=== PATIENT | male | born 1960 | race Caucasian/White ===

== ENCOUNTER → 2018-06-06 | Outpatient (CLI) | payer OTHER ==
[~2018-06-06] MED LIST: ACYC200C PO; DOCU-109 PO; HYDR-2761 PO; HYDR-2765 PO; LISI-130 PO; LORA10TA3 PO; METH-38 PO
--- NOTE | 2018-06-06 16:12 | EKG ---
[facility] [address] [place] [address] Test Date: 2018-06-06 Test Time: 16:08:59 Pat Name: JAMI DENSON Department: Room: Gender: M Reed Fixer: AT : 1960 Requested By: ADRIANA ALLAN Order Number: [id number] Reading MD: Pieter Cornejo MD Measurements Intervals [place] Rate: 92 P: 24 SC: 152 QRS: 9 QRSD: 94 T: 31 QT: 328 QTc: 410 Interpretive Statements SINUS RHYTHM NON-SPECIFIC ST/T CHANGES Electronically Signed On 06-07-2018 11:49:46 TECHNICAL TRAINING COORDINATOR by Pieter Cornejo MD
== END | disposition home or self-care (01) ==
LOC: SURGPAT 13:32
PROVIDERS: ATTEND Neurological Surgery
DX: Z01.818 Encounter for other preprocedural examination (principal); M51.16 Intervertebral disc disorders with radiculopathy, lumbar region; I10 Essential (primary) hypertension
CPT/HCPCS: 36415; 87641; 93005

== ENCOUNTER 2018-06-16 08:23 | Day surgery (SDC) | payer OTHER ==
[~2018-06-16] VITALS: Ht 172.7 cm; Wt 113.4 kg
[~2018-06-16 08:23] MED LIST changes: +BACITRACIN 50,000 UNIT in IV NORMAL SALINE 1000ML BAG 1,000 ML IRR ONE; +BUPIVAC MPF-EPI 0.5%-1:200000 30 ML VIAL. ONE; -DOCU-109 PO; +GELATIN SPONGE SIZE 12-7MM SPONGE. TP ONE; -HYDR-2765 PO; +HYDROmorphone 2 MG/ML VIAL IV PRN; +IV RINGERS,LACTATED 1000ML 1,000 ML IV SCH; +KETOROLAC 60 MG/2 ML INJ FOR OR. ONE; +LIDOCAINE 1% PF 2 ML VIAL. ID PRN; -METH-38 PO; +MORPHINE SULFATE 4 MG/ML VIAL. IV PRN; +ONDANSETRON PF 4 MG/2 ML VIAL. IV PRN; +PROCHLORPERAZINE 10 MG/2 ML VIAL. IV PRN; +THROMBIN TOPICAL 20,000 UNIT SPRAY.SYRN KIT TP ONE; +fentaNYL PF VIAL 100 MCG/2 ML VIAL IV PRN
[2018-06-16] MEDS ORDERED: fentaNYL PF VIAL 100 MCG/2 ML VIAL ONE (09:10)
[2018-06-16] MEDS ORDERED: SUCCINYLCHOLINE 200 MG/10 ML VIAL. ONE (09:10)
[2018-06-16] MEDS ORDERED: ROCURONIUM 50 MG/5 ML VIAL. ONE (09:10)
[2018-06-16] MEDS ORDERED: LIDOCAINE 2% PF 5 ML VIAL. ONE (09:10)
[2018-06-16] MEDS ORDERED: PROPOFOL 20 ML IV ONE (09:10)
[2018-06-16] MEDS ORDERED: 0.9 % SODIUM CHLORIDE 20 ML VIAL. IJ ONE (09:15)
[2018-06-16] MEDS ORDERED: PROPOFOL 100 ML IV ONE (09:37)
[2018-06-16] MEDS ORDERED: REMIFENTANIL 2 MG VIAL. IV ONE (09:43)
[2018-06-16] MEDS ORDERED: PROPOFOL 50 ML IV ONE (10:00)
[2018-06-16] MEDS ORDERED: SCOPOLAMINE 1.5MG PATCH. TD ONE (10:15)
[2018-06-16] MEDS ORDERED: DEXAMETHASONE SOD PHOS 20 MG/5 ML VIAL. ONE (10:45)
[2018-06-16] MEDS ORDERED: DESFLURANE > 120 MINUTES IH ONE (10:45)
--- NOTE | 2018-06-16 10:57 | PREOP HP ---
DATE OF SERVICE: 06/16/2018 HISTORY OF PRESENT ILLNESS: The patient is a pleasant 57-year-old who I have seen in the past. He has developed low back pain and left hip and left anterior thigh and leg pain. The problem started after a falling accident. He relates it is gradually increased and now is a 4-5/10 with activity. Activity such as walking upstairs markedly increases pain. Sitting helps. He is taking tramadol, which could help. He is taking epidural steroid injections with short-term relief. He feels there may be some weakness in his left leg. He describes left anterior thigh numbness as a burning sensation. PAST MEDICAL HISTORY: Arthritis, cold sores, fever, blisters, head or neck injury, hypertension and SETH. PAST SURGICAL HISTORY: Cervical diskectomy in 2014. FAMILY HISTORY: Cancer, heart problems or disease, hypertension and NM at an early age. 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 . He rarely exercises. History of marijuana use. Current smoker. Drinks coffee and soda daily. ALLERGIES: No known drug allergies. CURRENT MEDICATIONS: Lisinopril, simvastatin, acyclovir, loratadine and tramadol hydrochloride. REVIEW OF SYSTEMS: A 12-point review of systems was obtained and is noncontributory, except for that mentioned above. PHYSICAL EXAMINATION: NEUROSURGERY EXAMINATION: GENERAL APPEARANCE: Alert, pleasant, no acute distress. HEAD: Normocephalic and atraumatic. SKIN: Warm and dry. MUSCULOSKELETAL: Lumbar paraspinal muscle bulk is normal, restricted range of motion of the lumbar spine, gzph-bj-[id number] tenderness of the lower lumbar spine with palpation, normal range of motion of the lower extremities bilaterally. EXTREMITIES: No clubbing, cyanosis or edema. NEUROLOGIC: Alert and oriented x 3, normal recent and remote memory, strength 5/5 in bilateral lower extremities, sensory was intact to light touch in bilateral lower extremities, reflexes were present and symmetric in lower extremities bilaterally, positive straight leg raising on the left, negative straight leg raising on the right, normal gait. IMAGING DATA: I reviewed a lumbar MRI scan. On this study, at L4-L5, there is foraminal narrowing on the left due to hypertrophic bone and facet as well as disk bulging. There is enough lateral recess and foraminal narrowing to affect both the L4-L5 roots on the left. ASSESSMENT/PLAN: I believe the problems at L4-L5 on the left explain his pain. I recommended lumbar microsurgery via transforaminal microdecompression. With that approach, I can decompress with both the L4 and L5 roots. I discussed this with the patient and his , including outlining the risks including nerve root injury. I also explained that in the future if he develops chronic back pain, he may require fusion. He understands. He would like us to go ahead. We will make the arrangements. ADRIANA ALLAN MD DR: ADAN/gladys JOB#: [id number] / [id number] TATE
[2018-06-16] MEDS ORDERED: PHENYLEPHRINE 10 MG/ML VIAL. ONE ×3 (11:05→11:23)
[2018-06-16] MEDS ORDERED: ONDANSETRON PF 4 MG/2 ML VIAL. ONE (11:49)
--- NOTE | 2018-06-16 13:39 | DISCH ---
DISCHARGE INSTRUCTIONS Condition on Discharge Condition on Discharge: Stable Activity After Discharge Activity Instructions for Disc: Activity as tolerated, Avoid exertion Other activity instructions: no driving for a week Bathing Instructions: Shower-keep dressing dry Lifting Instructions after Dis: No heavy lifting, No pulling or pushing, Do not lift >10 pounds Diet after Discharge Additional Diet Restrictions: resume home diet Wound Incision Care Wound/Incision Care: Ice to area for comfort Other wound/incision instructi: may remove dressing in 48 hours if dry then may shower, no soaking Contacting the after DC Call your doctor for: Concerns you may have Follow-Up Follow up with: Dr. Allan's nurse in 2 weeks [phone] ADRIANA ALLAN MD Jun 16, 2018 13:39
[2018-06-16] MEDS ORDERED: METH-38 PO (13:44)
[2018-06-16] MEDS ORDERED: HYDR-2765 PO (13:44)
[2018-06-16] MEDS ORDERED: DOCU-109 PO (13:44)
[2018-06-16] MEDS ORDERED: HYDROcodone/APAP 7.5/325MG 1 TAB TABLET ONE (14:05)
--- NOTE | 2018-06-16 14:38 | OP ---
DATE OF SURGERY: 06/16/2018 PREOPERATIVE DIAGNOSES: Lateral recess stenosis and foraminal narrowing L4-L5 on the left from disc bulging as well as hypertrophic bone and facet. POSTOPERATIVE DIAGNOSES: Lateral recess stenosis and foraminal narrowing L4-L5 on the left from disc bulging as well as hypertrophic bone and facet. OPERATION PERFORMED: Hemilaminotomy and transfacet exposure L4-5 left, decompression of the left L4 and L5 nerve roots with microdiscectomy, decompression of lateral and foraminal disc bulge, L4-L5, left. The operation was done with EMG monitoring, SSEP monitoring, fluoroscopy, microscopic dissection. SURGEON: Matthew Allan M.D. COUNTY COMMISSIONER: RAMONE Camp, assisted with the surgery. She assisted with the exposure, microdecompression, the transforaminal portion as well as the closure. OPERATIVE INDICATIONS: The patient is a pleasant 57-year-old man who developed intractable back and left leg pain, which failed conservative measures. On imaging studies, he had above-mentioned findings, and I recommended lumbar microsurgery. I discussed with him the surgery, the risks, technique and expected postoperative course, and he wished to go ahead. DESCRIPTION OF PROCEDURE: Following general endotracheal anesthesia, the patient was positioned prone on the Frantz frame. His lumbar region was prepped and draped in standard fashion. BRAEDEN hose and AV impulse boots were applied for DVT prophylaxis. A microscope was draped. Fluoroscopy was draped in the field. Monitoring was established. Ancef 2 grams was given less than 1 hour prior to initiation of surgery. Midline incision was made directly over the L4-L5 interspace that was taken down to skin and subcutaneous tissue, and I reflected the paraspinal muscles laterally and placed a [place] micro disc retractor. I brought in the microscope, and using the high speed air drill, I burred down a generous hemilaminotomy. I then worked laterally and superiorly and then trimming with ligamentum flavum, I exposed the dura of the exiting L5 root as well as the L4 root, which I followed laterally. There was disc bulging in the paracentral position as well as in the foramen, and I incised the annulus and ligament and performed a generous discectomy, both with the foraminal portion as well as the paracentral portion and fully decompressed the dura and nerve root. A portion of the disc was heavily calcified and pushed backwards. I trimmed as much of this away to try to further decompress the region. I did perform partial foraminotomy at this point, and I felt that I had an excellent decompression of both the L4 and L5 roots. I irrigated copiously with antibiotic solution. I can easily follow the nerve root laterally and inferiorly. There were no retained fragments. I irrigated and removed the retractor, obtained hemostasis in the muscle, and I closed the wound in layers with absorbable suture. The skin was closed with 4-0 subcuticular stitch. The operation went very well, and the patient was awakened uneventfully. I was quite pleased with the surgery. MATTHEW ALLAN MD DR: ADAN/gladys JOB#: [id number] / [id number] TATE
[2018-06-16] MEDS ORDERED: HYDROcodone/APAP 7.5/325MG 1 TAB TABLET PO PRN (14:45)
[2018-06-16 14:53] VITALS: BP 136/76
--- NOTE | 2018-06-20 14:13 | PATHOLOGY ---
[facility] Accession Number: [id number] . 01 Material submitted: . LUMBAR DISC AND DECOMPRESSION . 01 Clinical history: . Low back pain, lumbar herniated disc with radiculopathy. . 02 Diagnosis: Segments of fibrocartilaginous and fibroadipose tissue and bone, lumbar disc and decompression: - Degenerative changes of fibrocartilaginous tissue. ([facility] 06/20/2018) [facility]/06/20/2018 . 02 Comment: There is no evidence of an acute inflammatory process or malignancy. ([facility] 06/20/2018) . 02 Electronically signed: . Maurice Rosario MD, Pathologist NPI- [id number] . 01 Gross description: . Received in formalin labeled "Ronald Choi, lumbar disc and decompression" is a 4.0 x 3.2 x 0.6 cm aggregate of pink-au to au-white rubbery and gritty tissue and scant au-white bone. Farm Laborer pieces are submitted in cassette A1 following decalcification. ([facility]; 06/16/2018) SY/SY . 02 Pathologist provided ICD-10: M51.36 . 02 CPT . 066466, [id number] Specimen Comment: A courtesy copy of this report has been sent to Specimen Comment: [phone]. Specimen Comment: Report sent to Performed at: 01 [facility] [address], [place] [id number] MD Josep Peterson MD Phone: [phone] Performed at: 02 [facility] [address] [place], [place] [id number] MD Maurice Rosario MD Phone: [phone]
== END 2018-06-16 14:53 | disposition home or self-care (01) ==
LOC: SURG 08:23 → EDUNIT# 10:30 → SURG 14:53
PROVIDERS: ATTEND Neurological Surgery
DX: M51.16 Intervertebral disc disorders with radiculopathy, lumbar region (principal); M48.061 Spinal stenosis, lumbar region without neurogenic claudication; M19.90 Unspecified osteoarthritis, unspecified site; I10 Essential (primary) hypertension; E78.2 Mixed hyperlipidemia; Z98.890 Other specified postprocedural states; Z82.49 Family history of ischemic heart disease and other diseases of the circulatory system; Z79.899 Other long term (current) drug therapy; F17.200 Nicotine dependence, unspecified, uncomplicated; A64 Unspecified sexually transmitted disease
CPT/HCPCS: 63030; 97161; A7015; J0330; J0696; J1100; J1885; J2001; J2405; J2704; J3010; J3490; J7030; J7120; 76000; 88304; 88311